=== PATIENT | male | born 1940 | race Caucasian/White ===

== ENCOUNTER 2017-04-15 12:13 | Emergency (ER) | payer MEDICARE, MEDICAID ==
[2017-04-15 14:34] VITALS: BP 113/80
--- NOTE | 2017-04-15 15:38 | RAD ---
HISTORY: fourth digit pain, ecchymosis COMPARISONS: None VIEWS: 3, Frontal, lateral, and oblique views of the fourth digit of the right foot FINDINGS: BONE DENSITY: Normal. BONES: There is no displaced fracture. 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 ALIGNMENT: There is no dislocation. SOFT TISSUES: Unremarkable. OTHER FINDINGS: None. IMPRESSION: NO ACUTE OSSEOUS INJURY. IF SYMPTOMS PERSIST, RECOMMEND REPEAT IMAGING.
--- NOTE | 2017-04-15 16:03 | UC ---
Lower Extremity/Ankle HPI - HPI Summary HPI Summary: 76 yo male awoke with pain right 4th toe it is ecchymotic he recalls no trauma but it hurts to bear wt mild MR - History of Current Complaint Chief Complaint: UCLowerExtremity Stated Complaint: INJURY TO 3RD TOE ON RIGHT FOOT Time Seen by Provider: 04/15/17 15:12 Hx Obtained From: Patient, Family/Construction Rigger Onset/Duration: Sudden Onset, Lasting Hours Severity Initially: Moderate Severity Currently: Moderate Pain Intensity: 7 Pain Scale Used: 0-10 Numeric Aggravating Factor(s): Standing, Ambulation Alleviating Factor(s): Rest Able to Bear Weight: Yes - Allergies/Home Medications Allergies/Adverse Reactions: Allergies Allergy/AdvReac Type Severity Reaction Status Date / Time No Known Allergies Allergy Verified 04/15/17 14:36 Home Medications: Home Medications Alendronate Sodium [Fosamax-] 70 mg PO WEEKLY 04/15/17 [History Confirmed ] Docusate CAP* [Colace Cap*] 100 mg PO DAILY 04/15/17 [History Confirmed 04/15/17 ] PMH/Surg Hx/FS Hx/Imm Hx Previously Healthy: Yes - Surgical History Surgical History: Yes Surgery Procedure, Year, and Place: see [facility] Annual Nsg Assessment. tonsillectomy. repair & graft of right wrist injury. left inguinal hernia repair. excision of basal cell carcinoma. cataract - Family History Known Family History: Positive: Unknown, Cardiac Disease Family History: cardiac - Social History Alcohol Use: None Substance Use Type: None Smoking Status (MU): Never Smoked Tobacco - Immunization History Most Recent Influenza Vaccination: staff unsure Most Recent Tetanus Shot: 08/30/13 Most Recent Pneumonia Vaccination: 09/11/08 Review of Systems Constitutional: Negative Skin: Bruising Eyes: Negative ENT: Negative Respiratory: Negative Cardiovascular: Negative Gastrointestinal: Negative Genitourinary: Negative Motor: Negative Neurovascular: Negative Musculoskeletal: Arthralgia Neurological: Negative Psychological: Negative Is Patient Immunocompromised?: No All Other Systems Reviewed And Are Negative: Yes Physical Exam Triage Information Reviewed: Yes Appearance: Well-Appearing, No Pain Distress, Well-Nourished Vital Signs: Initial Vital Signs Temp 98.4 F 04/15/17 14:28 Pulse 68 04/15/17 14:28 Resp 16 04/15/17 14:28 BP 113/80 04/15/17 14:28 Pulse Ox 95 04/15/17 14:28 Vital Signs Reviewed: Yes Eyes: Positive: Conjunctiva Clear ENT: Positive: Hearing grossly normal, Pharynx normal. Negative: Trismus, Muffled voice, Hoarse voice Neck: Positive: Supple Respiratory: Positive: No respiratory distress, No accessory muscle use Musculoskeletal: Positive: No Edema, Other: - surgical scars both feet Neurological: Positive: Alert Psychological Exam: Normal Lower Extremity Course/Dx - Differential Dx/Diagnosis Provider Diagnoses: right 4th toe contusion Discharge - Discharge Plan Condition: Stable Disposition: HOME Patient Education Materials: Contusion in Adults (ED) Forms: *Work Release Referrals: Fredy Orozco DO [Primary Care Provider] - If Needed Additional Instructions: post op shoe Images Feet (Multiple View): 1 - tender/ecchymotic, no erythema
== END 2017-04-15 16:06 | disposition home or self-care (01) ==
LOC: UCCORT 12:13
DX: S90.121A Contusion of right lesser toe(s) without damage to nail, initial encounter (principal); X58.XXXA Exposure to other specified factors, initial encounter; Y92.9 Unspecified place or not applicable
CPT/HCPCS: 99213; G0463

== ENCOUNTER 2018-06-05 17:50 | Emergency (ER) | payer MEDICARE, MEDICAID ==
[2018-06-05 18:33] VITALS: BP 134/88
--- NOTE | 2018-06-05 18:50 | UC ---
General HPI - HPI Summary HPI Summary: tipped out of his chair in the dining room and fell on his R side. staff noted bruising to his R elbow. pt denies pain. no head, neck or back pain. house carpenter at bedside states pt is acting normal for himself. - History of Current Complaint Chief Complaint: UCUpperExtremity Stated Complaint: RIGHT SIDE AND RT ELBOW INJURY Time Seen by Provider: 06/05/18 18:43 Hx Obtained From: Patient, Family/Pie Cutter Onset/Duration: Sudden Onset Pain Intensity: 0 - Allergy/Home Medications Allergies/Adverse Reactions: Allergies Allergy/AdvReac Type Severity Reaction Status Date / Time No Known Allergies Allergy Verified 04/15/17 14:36 Home Medications: Home Medications Finasteride TAB* [Proscar TAB*] 5 mg PO DAILY 06/05/18 [History Confirmed ] Tamsulosin CAP* [Flomax CAP*] 0.4 mg PO DAILY 06/05/18 [History Confirmed ] PMH/Surg Hx/FS Hx/Imm Hx - Additional Past Medical History Additional PMH: MR, BPH Cardiovascular History: Other - valve disease - Surgical History Surgical History: Yes [facility]. tonsillectomy. repair & graft of right wrist injury. left inguinal hernia repair. excision of basal cell carcinoma. cataract - Family History Known Family History: Positive: Unknown, Cardiac Disease Family History: cardiac - Social History Occupation: Disabled Lives: Assisted Living Alcohol Use: None Substance Use Type: None Smoking Status (MU): Never Smoked Tobacco - Immunization History Most Recent Influenza Vaccination: staff unsure Most Recent Tetanus Shot: 08/30/13 Most Recent Pneumonia Vaccination: 09/11/08 Review of Systems All Other Systems Reviewed And Are Negative: No Skin: Positive: Other - no lacerations Motor: Positive: Decreased ROM, Weakness Musculoskeletal: Positive: Other: - brusing R elbow Neurological: Positive: Other - no altered mental status from baseline Is Patient Immunocompromised?: No - Comments Additional Review of Systems Comments: pt has MR Physical Exam Triage Information Reviewed: Yes Appearance: Well-Appearing Vital Signs: Initial Vital Signs Temp 97.6 F 06/05/18 18:29 Pulse 66 06/05/18 18:29 Resp 18 06/05/18 18:29 BP 134/88 06/05/18 18:29 Pulse Ox 96 06/05/18 18:29 Vital Signs Reviewed: Yes Eyes: Positive: Conjunctiva Clear ENT: Positive: Pharynx normal, TMs normal. Negative: Nasal congestion, Nasal drainage Neck: Positive: Supple, Nontender, No Lymphadenopathy, Other: - c-spine non tender. Respiratory: Positive: Chest non-tender, Lungs clear, Normal breath sounds Cardiovascular: Positive: RRR Abdomen Description: Positive: Nontender Bowel Sounds: Positive: Present Musculoskeletal: Positive: Other: - neck and back with no deformity or tenderness. R elbow with mild brusing, non tender and rom intact. rest of extremities are atrumatic. Neurological: Positive: Alert - per his baseline according to his house carpenter. Psychological: Positive: Age Appropriate Behavior Skin Exam: Normal Diagnostics - Radiology No standard instances Radiology Interpretation Completed By: ED Physician - R elbow=no fx Course/Dx - Diagnoses Provider Diagnosis: Contusion of right elbow Discharge - Sign-Out/Discharge Documenting (check all that apply): Patient Departure All imaging exams completed and their final reports reviewed: No - Discharge Plan Condition: Stable Disposition: HOME Patient Education Materials: Contusion in Adults (ED) Referrals: Fredy Orozco DO [Primary Care Provider] - If Needed - Billing Disposition and Condition Condition: STABLE Disposition: Home - Attestation Statements Provider Attestation: Per institutional requirements, I have reviewed the chart, however, I was not consulted specifically or made aware of this patient by the midlevel provider. I did not personally evaluate, interact with , or disposition this patient.
--- NOTE | 2018-06-06 11:31 | UC ---
- Progress Note Progress Note: Radiology report reviewed. No acute osseous injury. No change in management. Course/Dx - Diagnoses Provider Diagnoses: Contusion of right elbow Discharge - Sign-Out/Discharge Documenting (check all that apply): Post-Discharge Follow Up All imaging exams completed and their final reports reviewed: Yes - Discharge Plan Condition: Stable Disposition: HOME Patient Education Materials: Contusion in Adults (ED) Referrals: Fredy Orozco DO [Primary Care Provider] - If Needed - Billing Disposition and Condition Condition: STABLE Disposition: Home
== END 2018-06-05 19:22 | disposition home or self-care (01) ==
LOC: UCCORT 17:50
DX: S50.01XA Contusion of right elbow, initial encounter (principal); W01.0XXA Fall on same level from slipping, tripping and stumbling without subsequent striking against object, initial encounter; Y92.89 Other specified places as the place of occurrence of the external cause
CPT/HCPCS: 99211; G0463

== ENCOUNTER 2018-06-06 15:46 | Emergency (ER) | payer MEDICARE, MEDICAID ==
[2018-06-06 15:57] VITALS: BP 128/81
--- NOTE | 2018-06-06 16:13 | UC ---
Hip/Pelvis Pain - HPI Summary HPI Summary: 77 yo male presents here for evaluation of right buttock hematoma Had fall yesterday. uses a walker - History Of Current Complaint Chief Complaint: UCLowerExtremity Stated Complaint: RT HIP INJ Time Seen by Provider: 06/06/18 15:55 Hx Obtained From: Patient Onset/Duration: Sudden Onset, Lasting Hours Timing: Constant Severity Initially: Moderate Severity Currently: None Pain Intensity: 0 Pain Scale Used: 0-10 Numeric Location: Discrete At: - right buttock Associated Signs And Symptoms: Positive: Swelling, Bruising Torso: 1 - hematoma - Allergies/Home Medications Allergies/Adverse Reactions: Allergies Allergy/AdvReac Type Severity Reaction Status Date / Time No Known Allergies Allergy Verified 06/06/18 15:58 PMH/Surg Hx/FS Hx/Imm Hx Previously Healthy: Yes - lives in [facility] - Surgical History Surgical History: Yes Surgery Procedure, Year, and Place: see [facility] Annual Nsg Assessment. tonsillectomy. repair & graft of right wrist injury. left inguinal hernia repair. excision of basal cell carcinoma. cataract - Family History Known Family History: Positive: Unknown, Cardiac Disease Family History: cardiac - Social History Alcohol Use: None Substance Use Type: None Smoking Status (MU): Never Smoked Tobacco - Immunization History Most Recent Influenza Vaccination: staff unsure Most Recent Tetanus Shot: 08/30/13 Most Recent Pneumonia Vaccination: 09/11/08 Review of Systems All Other Systems Reviewed And Are Negative: Yes Constitutional: Positive: Negative Skin: Positive: Bruising Eyes: Positive: Negative ENT: Positive: Negative Respiratory: Positive: Negative Cardiovascular: Positive: Negative Gastrointestinal: Positive: Negative Genitourinary: Positive: Negative Motor: Positive: Negative Neurovascular: Positive: Negative Musculoskeletal: Positive: Negative Neurological: Positive: Negative Psychological: Positive: Negative Physical Exam Triage Information Reviewed: Yes Appearance: Well-Appearing, No Pain Distress Vital Signs: Initial Vital Signs Temp 98.1 F 06/06/18 15:55 Pulse 65 06/06/18 15:55 Resp 21 06/06/18 15:55 BP 128/81 06/06/18 15:55 Pulse Ox 95 06/06/18 15:55 Vital Signs Reviewed: Yes Eyes: Positive: Conjunctiva Clear ENT: Negative: Hearing grossly normal, Nasal congestion, Nasal drainage, Muffled voice, Hoarse voice Neck: Positive: Supple, Nontender, No Lymphadenopathy Respiratory: Positive: Lungs clear, Normal breath sounds, No respiratory distress, No accessory muscle use Cardiovascular: Positive: RRR Musculoskeletal: Positive: No Edema, Other: - right hip FROM Neurological: Positive: Alert Psychological Exam: Normal Diagnostics - Radiology No standard instances Radiology Interpretation Completed By: Radiologist Summary of Radiographic Findings: pelvis - no fx Hip Injury Course/Dx - Differential Dx/Diagnosis Provider Diagnosis: Hematoma Discharge - Sign-Out/Discharge Documenting (check all that apply): Patient Departure All imaging exams completed and their final reports reviewed: Yes - Discharge Plan Condition: Stable Disposition: HOME Patient Education Materials: Hematoma (ED) Referrals: Fredy Orozco DO [Primary Care Provider] - 5 Days - Billing Disposition and Condition Condition: STABLE Disposition: Home
== END 2018-06-06 16:44 | disposition home or self-care (01) ==
LOC: UCCORT 15:46
DX: S70.01XA Contusion of right hip, initial encounter (principal); W19.XXXA Unspecified fall, initial encounter; Y92.9 Unspecified place or not applicable
CPT/HCPCS: 72170; 99212; G0463

== ENCOUNTER 2018-07-20 08:17 | Emergency (ER) | payer MEDICARE, MEDICAID ==
[2018-07-20 08:30] VITALS: BP 126/39
--- NOTE | 2018-07-20 08:37 | UC ---
General HPI - HPI Summary HPI Summary: 77 yo gentleman presents for eval / tx R foot / ankle swelling and ecchymosis. Eccymosis was noted last night in the shower, prompting visit today. Uses walker to ambulate, this has not changed. Mr. Freeman resides at an assisted . Presents today accompanied by aide. Last week, Mr. Freeman fell down in the shower, was taken to the [facility] ED, where he had several imaging studies including head / neck. Currently denies any pain c/o's. No recent loc. No vis / aud issues. No sob / cp / palpitations. No GI / abd issues. Specifically denies hip pain. No knee / ankle / foot pain. 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 - History of Current Complaint Chief Complaint: UCLowerExtremity Stated Complaint: RT FOOT PAIN Time Seen by Provider: 07/20/18 08:30 Hx Obtained From: Patient, Family/Oncology Patient Navigator Pain Intensity: 0 - Allergy/Home Medications Allergies/Adverse Reactions: Allergies Allergy/AdvReac Type Severity Reaction Status Date / Time No Known Allergies Allergy Verified 06/06/18 15:58 Home Medications: Home Medications Aspirin 81 mg CHEW TAB* [Aspirin Low Dose TAB*] 81 mg PO DAILY 07/20/18 [ History Confirmed 07/20/18] Calcium/Vitamin D TAB 250/125* [Oscal D TAB 250/125*] 500 mg PO DAILY 07/20/18 [ History Confirmed 07/20/18] Cholecalciferol TAB* [Vitamin D TAB*] 1,000 unit PO DAILY 07/20/18 [History Confirmed 07/20/18] Docusate CAP* [Colace Cap*] 100 mg PO DAILY 07/20/18 [History Confirmed 07/20/18 ] Finasteride TAB* [Proscar TAB*] 5 mg PO DAILY 07/20/18 [History Confirmed ] Magnesium Hydroxide LIQ* [Milk of Magnesia LIQ*] 30 ml PO DAILY PRN 07/20/18 [ History Confirmed 07/20/18] Tamsulosin CAP* [Flomax CAP*] 0.4 mg PO DAILY 07/20/18 [History Confirmed ] Vitamin THERAPEUTIC TAB* [Theragran TAB*] 1 tab PO DAILY 07/20/18 [History Confirmed 07/20/18] PMH/Surg Hx/FS Hx/Imm Hx Previously Healthy: No - see below - Surgical History Surgical History: Yes Surgery Procedure, Year, and Place: see [facility] Annual Nsg Assessment. tonsillectomy. repair & graft of right wrist injury. left inguinal hernia repair. excision of basal cell carcinoma. cataract - Family History Known Family History: Positive: Unknown, Cardiac Disease Family History: cardiac - Social History Alcohol Use: None Substance Use Type: None Smoking Status (MU): Never Smoked Tobacco - Immunization History Most Recent Influenza Vaccination: staff unsure Most Recent Tetanus Shot: 08/30/13 Most Recent Pneumonia Vaccination: 09/11/08 Review of Systems All Other Systems Reviewed And Are Negative: Yes Constitutional: Positive: Negative Skin: Positive: Other - see hpi Eyes: Positive: Negative ENT: Positive: Negative Respiratory: Positive: Negative Cardiovascular: Positive: Negative Gastrointestinal: Positive: Negative Genitourinary: Positive: Negative Motor: Positive: Other - see hpi Neurovascular: Positive: Other - see hpi Musculoskeletal: Positive: Other: - see hpi Neurological: Positive: Other - see hpi Psychological: Positive: Negative Is Patient Immunocompromised?: No Physical Exam Triage Information Reviewed: Yes Appearance: Well-Appearing - sitting up in chair. conversing easily and appropriately. in good spirits, Well-Nourished Vital Signs: Initial Vital Signs Temp 98 F 07/20/18 08:25 Pulse 76 07/20/18 08:25 Resp 18 07/20/18 08:25 BP 126/39 07/20/18 08:25 Pulse Ox 95 07/20/18 08:25 Vital Signs Reviewed: Yes Eye Exam: Normal - grossly nad ENT Exam: Normal - mmm. trachea midline Neck exam: Normal - supple for age. nontender to evaluation Respiratory Exam: Normal Respiratory: Positive: Chest non-tender, Lungs clear, Normal breath sounds, No respiratory distress, No accessory muscle use Cardiovascular Exam: Normal Cardiovascular: Positive: Pulses Normal, Brisk Capillary Refill Abdominal Exam: Normal Abdomen Description: Positive: Nontender Musculoskeletal Exam: Other - Both legs and feet with dependant edema, venous varicosities. Feet both warm to touch. + dystrophic mild nails. No point bony tenderness elicited to either ankle. No prox t-f tenderness. No calf pain. Right medial ankle post with + ecchymosis purple brown. + local increased swelling. no crepitus, not red / hot. Neurological Exam: Normal - grossly nonfocal. See alondra roca R foot / ankle Psychological Exam: Normal Skin Exam: Normal - nondiaphoretic. See alondra roca RLE Course/Dx - Course Course Of Treatment: Sx/ sx c/w ankle and or foot sprain. Without point bony tenderness. REviewed xray reports ankle / foot. Both legs noteworthy for dependent edema, and evidence of venous varicosities - > this will potentiate any eccymosis and swelling from trauma or otherwise. Will wrap ankle / foot for support. Uses walker for amb assistance. I recommend f/u PCP within the next 5-7 days for re-assessment R ankle / foot. And for evaluation for possible compression socks or stockings, at least above the calf / below the knee, during the day. Questions as posed answered to the best of my ability. 09:50 - declines jama - Diagnoses Provider Diagnosis: Ankle sprain, Peripheral vascular disease Discharge - Sign-Out/Discharge Documenting (check all that apply): Patient Departure All imaging exams completed and their final reports reviewed: Yes - Discharge Plan Condition: Stable Disposition: HOME Patient Education Materials: Ankle Sprain (ED), Peripheral Vascular Disease (ED ), Leg Edema (ED), Venous Insufficiency (DC) Referrals: Fredy Orozco DO [Primary Care Provider] - Additional Instructions: Jama wrap during the day for comfort. Follow up with primary care physician, if possible in the next 3-7 days for re- evaluation. You have peripheral vascular disease. Follow up with your primary care physician. Please consider compression socks / stockings (above the calf / below the knee) during the day, check with primary care physician. Elevate legs frequently and as much as possible. This is paramount. Ok to bear weight with walker, with aide assistance nearby, until ok by pcp - Billing Disposition and Condition Condition: STABLE Disposition: Home
== END 2018-07-20 09:54 | disposition home or self-care (01) ==
LOC: UCCORT 08:17
DX: S93.401A Sprain of unspecified ligament of right ankle, initial encounter (principal); I73.9 Peripheral vascular disease, unspecified; Z79.82 Long term (current) use of aspirin; Z79.899 Other long term (current) drug therapy; X58.XXXA Exposure to other specified factors, initial encounter
CPT/HCPCS: 99211; G0463

== ENCOUNTER 2019-03-26 11:51 | Emergency (ER) | payer MEDICARE, MEDICAID ==
[2019-03-26 12:29] VITALS: BP 86/51
--- NOTE | 2019-03-26 13:00 | UC ---
FLU HPI - HPI Summary HPI Summary: 78 year old male with PMH + for cardiomegaly, thoracic aneurysm, BPH presents with low grade fever overnight, cough- non-productive, increase urinary frequency as night. Denies urinary burning, frequency currently. complaining of frontal headache currently that is more severe. no decline in cognition. + cough- non-productive since last night. - History of Current Complaint Chief Complaint: UCGeneralIllness Stated Complaint: URINARY Time Seen by Provider: 03/26/19 12:33 Hx Obtained From: Patient Onset/Duration: Sudden Onset, Lasting Hours - overnight into today Severity Currently: Moderate Severity Initially: Moderate Pain Intensity: 0 Pain Scale Used: 0-10 Numeric Associated Signs & Symptoms: Positive: Fever - last night ~ 100, Cough, Headache - frontal b/l. Negative: F/C, Sore Throat, Nasal Congestion - Allergy/Home Medications Allergies/Adverse Reactions: Allergies Allergy/AdvReac Type Severity Reaction Status Date / Time No Known Allergies Allergy Verified 03/26/19 12:26 Home Medications: Home Medications Acetaminophen [Tylenol] 650 mg PO QID PRN 03/26/19 [History Confirmed 03/26/19] PMH/Surg Hx/FS Hx/Imm Hx Previously Healthy: Yes Cardiovascular History: Cardiac Disease - Surgical History Surgical History: Yes Surgery Procedure, Year, and Place: see [facility] Annual Nsg Assessment. tonsillectomy. repair & graft of right wrist injury. left inguinal hernia repair. excision of basal cell carcinoma. cataract - Family History Known Family History: Positive: Unknown, Cardiac Disease Family History: cardiac - Social History Occupation: Retired Lives: [facility] Alcohol Use: None Substance Use Type: None Smoking Status (MU): Former Smoker When Did the Patient Quit Smoking/Using Tobacco: unknown - Immunization History Most Recent Influenza Vaccination: staff unsure Most Recent Tetanus Shot: 08/30/13 Most Recent Pneumonia Vaccination: 09/11/08 Review of Systems All Other Systems Reviewed And Are Negative: Yes Constitutional: Positive: Fever - last night. Negative: Chills, Fatigue ENT: Positive: Ear Ache - c/ oear wax impaction Respiratory: Positive: Cough. Negative: Shortness Of Breath Cardiovascular: Positive: Chest Pain. Negative: Palpitations Physical Exam Triage Information Reviewed: Yes Appearance: Well-Appearing, No Pain Distress, Well-Nourished Vital Signs: Initial Vital Signs Temp 98.5 F 03/26/19 12:26 Pulse 57 03/26/19 12:26 Resp 17 03/26/19 12:26 BP 86/51 03/26/19 12:26 Pulse Ox 97 03/26/19 12:26 Vital Signs Reviewed: Yes Eyes: Positive: Conjunctiva Clear ENT: Positive: Pharynx normal, TMs normal, Uvula midline. Negative: Pharyngeal erythema, TM bulging, TM dull, TM red, Tonsillar swelling, Tonsillar exudate, Sinus tenderness Neck: Positive: Supple, Nontender, No Lymphadenopathy. Negative: Nuchal Rigidity, Enlarged Nodes @ Respiratory: Positive: Chest non-tender, Lungs clear, Normal breath sounds, No respiratory distress, No accessory muscle use. Negative: Respiratory distress, Crackles, Rhonchi, Stridor, Wheezing Cardiovascular: Positive: Bradycardia, Other: - irregular heart rate and rhythm. Flu Course/Dx - Course Course Of Treatment: repeat manual BP 90/52. Due to severe headache, low BP, h/o cardiomegaly, dry cough, patient transferred via ambulance to [place] ER for further work up, report given to Aleksandra NGO. - Differential Dx/Diagnosis Provider Diagnosis: Hypotension Discharge ED - Sign-Out/Discharge Documenting (check all that apply): Patient Departure All imaging exams completed and their final reports reviewed: No Studies - Discharge Plan Condition: Fair Disposition: TRANS [facility] Patient Education Materials: Hypotension (ED) Referrals: Fredy Orozco DO [Primary Care Provider] - Additional Instructions: Due to low BP with additional co-morbities, please go to ER for further work-up - Billing Disposition and Condition Condition: FAIR Disposition: Trans Higher Lvl of Care Fac
== END 2019-03-26 13:10 | disposition short-term general hospital (02) ==
LOC: UCCORT 11:51
DX: I95.9 Hypotension, unspecified (principal); I51.7 Cardiomegaly; I71.2 Thoracic aortic aneurysm, without rupture; R50.9 Fever, unspecified; R05 Cough; R07.9 Chest pain, unspecified; R51 Headache; Z87.891 Personal history of nicotine dependence; Z85.828 Personal history of other malignant neoplasm of skin
CPT/HCPCS: 99213; G0463

== ENCOUNTER 2021-06-09 07:38 | Inpatient (IN) ==
[2021-06-09] MEDS ORDERED: Heparin 5000 UNITS/ML 1 mL VIAL IV SCH (09:00)
[2021-06-09] MEDS: Heparin DRIP 25,000 UNITS BAG 25,000 UNITS/500 ML BAG IV SCH ×2 (09:10→11:31)
[2021-06-09 09:29] LABS: Hematocrit 33 % (42-52); Hemoglobin 10.7 g/dL (14.0-18.0); Mean Corpuscular HGB Conc 32 g/dL (31-36); Mean Corpuscular Hemoglobin 28 pg (27-31); Mean Corpuscular Volume 85 fL (80-94); Platelet Count 188 10^3/uL (150-450); Red Blood Count 3.86 10^6 /uL (4.18-5.48); Red Cell Distribution Width 15 % (10-15); White Blood Count 8.2 10^3/uL (3.5-10.8)
[2021-06-09 09:58] LABS: Calcium 8.8 mg/dL (8.6-10.3)
[2021-06-09 10:05] LABS: ABS Eosinophils 0.1 10^3/ul (0-0.6); ABS Lymphocytes 0.3 10^3/ul (1.0-4.8); ABS Monocytes 0.8 10^3/ul (0-0.8); ABS Neutrophils 6.9 10^3/ul (1.5-7.7); Eosinophil % 1.7 %; Lymphocyte % 4.2 %
[2021-06-09 10:15] LABS: INR 1.67 (0.86-1.15)
[2021-06-09 10:22] LABS: Activated Partial Thrombo Time 128.8 seconds (26.0-38.0)
[2021-06-09 10:39] LABS: Potassium 4.7 mmol/L (3.5-5.0)
[2021-06-09] MEDS ORDERED: Albuterol HFA INHALER 8 gm MDI INH PRN (11:05)
[2021-06-09 11:07] LABS: High Sensitivity Troponin 1 Hr 321 pg/mL (<20)
[2021-06-09] MEDS ORDERED: NS 0.9% 1000 ml BAG 1,000 ML IV SCH (11:15)
[2021-06-09] MEDS ORDERED: Furosemide 20 mg/2 ml IV VIAL IV ONE (11:51)
[2021-06-09 12:23] LABS: C Reactive Protein 158.95 mg/L (<8.01)
[2021-06-09] MEDS ORDERED: cefTRIAXone 1 gm/50 mL NS BAG 1 GM/50 ML BAG IVPB SCH ×2 (12:30→18:00)
[2021-06-09 12:32] LABS: Magnesium 1.8 mg/dL (1.9-2.7); TSH Ultra Thyroid Stim Horm 2.22 mcIU/mL (0.34-5.60)
[2021-06-09] MEDS ORDERED: Magnesium Sulfate IV 1GM/100ML 1 GM/100 ML BAG IV ONE (13:03)
[2021-06-09] MEDS: DOXYcycline 100 MG in NS 0.9% 250 ml 250 ML IVPB SCH (13:12)
[2021-06-09] MEDS ORDERED: Perflutren Lipid Microsphere 3 ML VIAL ONE (13:48)
[2021-06-09 14:27] LABS: PCO2 Arterial 54 mmHg (35-45); PO2 Arterial 74 mmHg (80-100)
[2021-06-09 16:32] LABS: Venous Bicarbonate HCO3 28.4 mmol/L (24-28)
[2021-06-09] MEDS: Mometasone/Formoter 200/5 MDI INH SCH (19:50)
[2021-06-09] MEDS: Furosemide 40 mg/4 ml IV VIAL IV SCH (20:53)
[2021-06-10] MEDS: DOXYcycline 100 MG in NS 0.9% 250 ml 250 ML IVPB SCH ×2 (01:10→14:21)
[2021-06-10 06:55] LABS: ABS Eosinophils 0.1 10^3/ul (0-0.6); ABS Lymphocytes 0.3 10^3/ul (1.0-4.8); ABS Monocytes 0.7 10^3/ul (0-0.8); ABS Neutrophils 7.4 10^3/ul (1.5-7.7); Eosinophil % 1.5 %; Hematocrit 31 % (42-52); Hemoglobin 10.6 g/dL (14.0-18.0); Lymphocyte % 3.6 %; Mean Corpuscular HGB Conc 34 g/dL (31-36); Mean Corpuscular Hemoglobin 28 pg (27-31); Mean Corpuscular Volume 84 fL (80-94); Platelet Count 200 10^3/uL (150-450); Red Blood Count 3.73 10^6 /uL (4.18-5.48); Red Cell Distribution Width 15 % (10-15); White Blood Count 8.5 10^3/uL (3.5-10.8)
[2021-06-10] MEDS: Mometasone/Formoter 200/5 MDI INH SCH ×2 (07:10→20:23)
[2021-06-10 07:14] LABS: Anion Gap 9 mmol/L (2-11); Blood Urea Nitrogen 27 mg/dL (6-24); CO2 Carbon Dioxide 31 mmol/L (22-32); Calcium 8.6 mg/dL (8.6-10.3); Chloride 101 mmol/L (101-111); Cholesterol 96 mg/dL; Glucose 99 mg/dL (70-100); HDL Cholesterol 35.9 mg/dL; LDL Cholesterol 44 mg/dL; Magnesium 1.6 mg/dL (1.9-2.7); Potassium 4.1 mmol/L (3.5-5.0); Sodium 141 mmol/L (135-145); Total Iron Binding Capacity 188 mcg/dL (250-450); Transferrin 134 mg/dL (203-362); Triglycerides 80 mg/dL; eGFR CKD-EPI 57.5 (>60)
[2021-06-10 07:30] LABS: Ferritin 301.5 ng/mL (24-336)
[2021-06-10 07:46] LABS: % Iron Saturation 11 % (15-55); Iron < 20 ug/dL (50-212); Unsaturated Iron Binding 168 ug/dL
[2021-06-10] MEDS: Senna TAB 8.6 mg TAB PO SCH (10:10)
[2021-06-10] MEDS: Calcium (OSCAL) 500 mg TAB PO SCH (10:10)
[2021-06-10] MEDS: Furosemide 40 mg/4 ml IV VIAL IV SCH (10:11)
[2021-06-10] MEDS ORDERED: Magnesium Sulfate 2 gm BAG 2 GM/50 ML BAG IVPB ONE (11:10)
[2021-06-10] MEDS: cefTRIAXone 1 gm/50 mL D5W 1 GM/50 ML BAG IV SCH (17:59)
[2021-06-11] MEDS: DOXYcycline 100 MG in NS 0.9% 250 ml 250 ML IVPB SCH ×2 (01:28→12:00)
[2021-06-11 05:57] LABS: ABS Eosinophils 0.3 10^3/ul (0-0.6); ABS Lymphocytes 0.4 10^3/ul (1.0-4.8); ABS Monocytes 0.7 10^3/ul (0-0.8); Eosinophil % 3.7 %; Hematocrit 32 % (42-52); Hemoglobin 10.6 g/dL (14.0-18.0); Lymphocyte % 4.7 %; Mean Corpuscular HGB Conc 33 g/dL (31-36); Mean Corpuscular Hemoglobin 28 pg (27-31); Mean Corpuscular Volume 84 fL (80-94); Mean Platelet Volume 7.8 fL (7.4-10.4); Nucleated Red Blood Cells % 0.1; Platelet Count 212 10^3/uL (150-450); Red Blood Count 3.84 10^6 /uL (4.18-5.48); Red Cell Distribution Width 15 % (10-15); White Blood Count 8.5 10^3/uL (3.5-10.8)
[2021-06-11 06:13] LABS: Calcium 8.9 mg/dL (8.6-10.3); Potassium 4.1 mmol/L (3.5-5.0); eGFR CKD-EPI 57.5 (>60)
[2021-06-11] MEDS: Mometasone/Formoter 200/5 MDI INH SCH ×2 (08:38→21:15)
[2021-06-11] MEDS: Calcium (OSCAL) 500 mg TAB PO SCH (10:09)
[2021-06-11] MEDS: Senna TAB 8.6 mg TAB PO SCH (10:09)
[2021-06-11] MEDS: cefTRIAXone 1 gm/50 mL D5W 1 GM/50 ML BAG IV SCH (17:44)
[2021-06-11] MEDS: Enoxaparin 40 MG/0.4 ML SYR SUBCUT SCH (17:44)
[2021-06-12] MEDS: DOXYcycline 100 MG in NS 0.9% 250 ml 250 ML IVPB SCH ×2 (02:30→13:41)
[2021-06-12 08:15] LABS: ABS Eosinophils 0.3 10^3/ul (0-0.6); ABS Lymphocytes 0.3 10^3/ul (1.0-4.8); ABS Monocytes 0.6 10^3/ul (0-0.8); ABS Neutrophils 4.3 10^3/ul (1.5-7.7); Eosinophil % 4.6 %; Hematocrit 30 % (42-52); Hemoglobin 9.7 g/dL (14.0-18.0); Mean Corpuscular HGB Conc 32 g/dL (31-36); Mean Corpuscular Hemoglobin 28 pg (27-31); Mean Corpuscular Volume 85 fL (80-94); Mean Platelet Volume 7.7 fL (7.4-10.4); Nucleated Red Blood Cells % 0.1; Platelet Count 216 10^3/uL (150-450); Red Blood Count 3.54 10^6 /uL (4.18-5.48); Red Cell Distribution Width 15 % (10-15); White Blood Count 5.5 10^3/uL (3.5-10.8)
[2021-06-12] MEDS: Senna TAB 8.6 mg TAB PO SCH (09:04)
[2021-06-12] MEDS: Calcium (OSCAL) 500 mg TAB PO SCH (09:04)
[2021-06-12] MEDS: Mometasone/Formoter 200/5 MDI INH SCH ×2 (09:07→20:55)
[2021-06-12] MEDS: Enoxaparin 40 MG/0.4 ML SYR SUBCUT SCH (17:13)
[2021-06-12] MEDS: cefTRIAXone 1 gm/50 mL D5W 1 GM/50 ML BAG IV SCH (17:13)
[2021-06-12 18:21] LABS: Calcium 9.4 mg/dL (8.6-10.3); Magnesium 1.9 mg/dL (1.9-2.7); Potassium 4.7 mmol/L (3.5-5.0); eGFR CKD-EPI 64.2 (>60)
[2021-06-13 06:10] LABS: ABS Basophils 0.1 10^3/ul (0-0.2); ABS Eosinophils 0.3 10^3/ul (0-0.6); ABS Lymphocytes 0.4 10^3/ul (1.0-4.8); ABS Monocytes 0.6 10^3/ul (0-0.8); ABS Neutrophils 3.2 10^3/ul (1.5-7.7); Eosinophil % 6.7 %; Hematocrit 30 % (42-52); Hemoglobin 9.7 g/dL (14.0-18.0); Lymphocyte % 9.7 %; Mean Corpuscular HGB Conc 33 g/dL (31-36); Mean Corpuscular Hemoglobin 28 pg (27-31); Mean Corpuscular Volume 85 fL (80-94); Mean Platelet Volume 7.8 fL (7.4-10.4); Nucleated Red Blood Cells % 0.2; Platelet Count 214 10^3/uL (150-450); Red Cell Distribution Width 15 % (10-15); White Blood Count 4.6 10^3/uL (3.5-10.8)
[2021-06-13 06:27] LABS: Calcium 9.2 mg/dL (8.6-10.3); Magnesium 1.6 mg/dL (1.9-2.7); Potassium 4.4 mmol/L (3.5-5.0); eGFR CKD-EPI 63.5 (>60)
[2021-06-13] MEDS ORDERED: Magnesium Sulfate 2 gm BAG 2 GM/50 ML BAG IVPB ONE (08:36)
[2021-06-13] MEDS: Mometasone/Formoter 200/5 MDI INH SCH ×2 (08:48→20:21)
[2021-06-13] MEDS: Senna TAB 8.6 mg TAB PO SCH (09:02)
[2021-06-13] MEDS: Calcium (OSCAL) 500 mg TAB PO SCH (09:04)
[2021-06-13] MEDS: Enoxaparin 40 MG/0.4 ML SYR SUBCUT SCH (16:59)
[2021-06-14 06:27] LABS: ABS Eosinophils 0.3 10^3/ul (0-0.6); ABS Lymphocytes 0.5 10^3/ul (1.0-4.8); ABS Monocytes 0.6 10^3/ul (0-0.8); ABS Neutrophils 3.4 10^3/ul (1.5-7.7); Eosinophil % 5.5 %; Hematocrit 33 % (42-52); Hemoglobin 10.7 g/dL (14.0-18.0); Lymphocyte % 9.9 %; Mean Corpuscular HGB Conc 33 g/dL (31-36); Mean Corpuscular Hemoglobin 28 pg (27-31); Mean Corpuscular Volume 85 fL (80-94); Mean Platelet Volume 7.6 fL (7.4-10.4); Platelet Count 227 10^3/uL (150-450); Red Blood Count 3.85 10^6 /uL (4.18-5.48); Red Cell Distribution Width 15 % (10-15); White Blood Count 4.8 10^3/uL (3.5-10.8)
[2021-06-14] MEDS: Mometasone/Formoter 200/5 MDI INH SCH ×2 (07:40→20:49)
[2021-06-14 07:57] LABS: Calcium 9.3 mg/dL (8.6-10.3); Magnesium 1.9 mg/dL (1.9-2.7); Potassium 4.4 mmol/L (3.5-5.0)
[2021-06-14 08:02] LABS: eGFR CKD-EPI 66.3 (>60)
[2021-06-14] MEDS: Senna TAB 8.6 mg TAB PO SCH (08:30)
[2021-06-14] MEDS: Calcium (OSCAL) 500 mg TAB PO SCH (08:30)
[2021-06-14] MEDS: Enoxaparin 40 MG/0.4 ML SYR SUBCUT SCH (16:46)
[2021-06-15 07:09] LABS: eGFR CKD-EPI 65.6 (>60)
[2021-06-15] MEDS: Mometasone/Formoter 200/5 MDI INH SCH (07:48)
[2021-06-15] MEDS: Senna TAB 8.6 mg TAB PO SCH (08:43)
[2021-06-15] MEDS: Calcium (OSCAL) 500 mg TAB PO SCH (08:43)
[2021-06-15 11:20] VITALS: BP 110/71
== END 2021-06-15 13:47 | disposition home health service (06) | DRG 871 ==
LOC: ED 07:38 → SUATTDRO 11:18 → EDHOLD 11:18 → MEDTELE 15:56
PROVIDERS: ADMIT Internal Medicine; ATTEND Hospitalist